=== PATIENT | female | born 1975 | race Native Hawaiian/Other Pacific Islander ===

== ENCOUNTER 2017-01-06 17:30 | Emergency (ER) | payer OTHER ==
[~2017-01-06] VITALS: Ht 165.1 cm; Wt 81.6 kg
== END 2017-01-06 19:26 | disposition home or self-care (01) ==
LOC: ED 17:30
DX: S20.211A Contusion of right front wall of thorax, initial encounter (principal); W22.8XXA Striking against or struck by other objects, initial encounter
CPT/HCPCS: 99283

== ENCOUNTER 2017-04-03 22:43 | Emergency (ER) | payer OTHER ==
[~2017-04-03] VITALS: Ht 165.1 cm; Wt 68.0 kg
== END 2017-04-04 00:18 | disposition home or self-care (01) ==
LOC: ED 22:43
DX: M54.2 Cervicalgia (principal); M54.5 Low back pain
CPT/HCPCS: 99281

== ENCOUNTER 2017-05-19 13:17 | Emergency (ER) | payer OTHER ==
[~2017-05-19] VITALS: Ht 165.1 cm; Wt 56.7 kg
[2017-05-19 14:26] VITALS: BP 112/78; TEMP 98.6
== END 2017-05-19 14:26 | disposition home or self-care (01) ==
LOC: ED 13:17
DX: H01.006 Unspecified blepharitis left eye, unspecified eyelid (principal); J01.90 Acute sinusitis, unspecified; J02.9 Acute pharyngitis, unspecified
CPT/HCPCS: 99282

== ENCOUNTER 2017-09-11 16:40 | Emergency (ER) | payer OTHER ==
[~2017-09-11] VITALS: Ht 165.1 cm; Wt 68.0 kg
[2017-09-11 16:45] VITALS: TEMP 97.7
[2017-09-11 17:11] LABS: PLATELET COUNT 177 K/uL (152-353)
[2017-09-11 17:18] LABS: POTASSIUM 4.1 mmol/L (3.6-5.2); SODIUM 137 mmol/L (136-145)
[2017-09-11 18:41] VITALS: BP 132/78
== END 2017-09-11 18:42 | disposition home or self-care (01) ==
LOC: ED 16:40
DX: J06.9 Acute upper respiratory infection, unspecified (principal)
CPT/HCPCS: 36415; 80053; 85027; 87077; 87081; 87185; 87186; 87804; 87880; 99283

== ENCOUNTER 2018-07-24 11:14 | Emergency (ER) | payer OTHER ==
[~2018-07-24] VITALS: Ht 165.1 cm; Wt 72.6 kg
[2018-07-24 11:28] VITALS: BP 121/88; TEMP 97.9
== END 2018-07-24 13:00 | disposition home or self-care (01) ==
LOC: ED 11:14
DX: M79.602 Pain in left arm (principal); M79.661 Pain in right lower leg; W18.39XA Other fall on same level, initial encounter; Y92.89 Other specified places as the place of occurrence of the external cause
CPT/HCPCS: 99283

== ENCOUNTER 2018-10-02 16:34 | Outpatient (CLI) | payer OTHER | END 2018-10-02 16:39 | disposition short-term general hospital (02) | LOC: AMB 16:34 | DX: F19.10 Other psychoactive substance abuse, uncomplicated (principal); R41.82 Altered mental status, unspecified | CPT/HCPCS: A0425; A0429 ==

== ENCOUNTER 2018-10-02 16:42 | Emergency (ER) | payer OTHER ==
[~2018-10-02] VITALS: Ht 165.1 cm; Wt 54.4 kg
[2018-10-02 18:36] LABS: PLATELET COUNT 247 K/uL (152-353)
[2018-10-02 18:42] LABS: POTASSIUM 3.8 mmol/L (3.6-5.2)
[2018-10-03 03:14] VITALS: BP 123/70; TEMP 98
== END 2018-10-03 03:20 | disposition home or self-care (01) ==
LOC: ED 16:42
PROVIDERS: Emergency Medicine
DX: F19.10 Other psychoactive substance abuse, uncomplicated (principal); F32.89 Other specified depressive episodes
CPT/HCPCS: 36415; 80053; 80307; 80320; 80329; 81000; 83735; 84443; 85027; 99285

== ENCOUNTER 2022-02-05 15:27 | Outpatient (CLI) | payer OTHER | END 2022-02-05 19:05 | disposition home or self-care (01) | LOC: RAD 15:27 | PROVIDERS: ATTEND Nurse Practitioner | DX: M25.512 Pain in left shoulder (principal); R10.30 Lower abdominal pain, unspecified ==

== ENCOUNTER 2022-03-21 14:20 | Emergency (ER) | payer OTHER ==
[~2022-03-21] VITALS: Ht 165.1 cm; Wt 54.4 kg
[2022-03-21 14:25] VITALS: TEMP 98.6
[2022-03-21 16:04] VITALS: BP 110/74
== END 2022-03-21 16:05 | disposition home or self-care (01) ==
LOC: ED 14:20
DX: S60.211A Contusion of right wrist, initial encounter (principal); S66.511A Strain of intrinsic muscle, fascia and tendon of left index finger at wrist and hand level, initial encounter; W20.8XXA Other cause of strike by thrown, projected or falling object, initial encounter; Y92.89 Other specified places as the place of occurrence of the external cause
CPT/HCPCS: 99283

== ENCOUNTER 2022-08-10 21:52 | Emergency (ER) | payer OTHER ==
[~2022-08-10] VITALS: Ht 165.1 cm; Wt 69.9 kg
[2022-08-10 21:52] VITALS: BP 141/88; TEMP 98.4
[2022-08-10 23:42] LABS: PLATELET COUNT 226 K/uL (152-353)
[2022-08-10 23:57] LABS: POTASSIUM 3.7 mmol/L (3.6-5.2)
== END 2022-08-11 01:49 | disposition home or self-care (01) ==
LOC: ED 21:52
PROVIDERS: Family Medicine
DX: K52.89 Other specified noninfective gastroenteritis and colitis (principal); E86.0 Dehydration; J32.8 Other chronic sinusitis; B97.89 Other viral agents as the cause of diseases classified elsewhere; Z20.822 Contact with and (suspected) exposure to COVID-19
CPT/HCPCS: 36415; 80053; 81000; 85027; 87502; 87635; 99283; U0003